=== PATIENT | male | born 1965 | race American Indian/Alaskan Native ===

== ENCOUNTER 2019-08-18 10:48 | Outpatient (CLI) | payer MEDICARE ==
--- NOTE | 2019-08-18 12:07 | Magnetic Resonance Report ---
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 COMPARISON: None available. FINDINGS: GENERAL OBSERVATIONS: Unenhanced MR images of the lumbar spine were obtained. Vertebral body alignment is unremarkable. [id number] ANALYSIS: L5-S1: Diffuse disc bulging is present, associated with broad-based shallow central disc protrusion. Degenerative-type bone marrow signal changes are associated with the anterior inferior aspect of the L5 vertebral body. L4-5: Minimal diffuse disc bulging associated with left-sided facet degenerative changes. L3-4: Disc profile is well preserved. L2-3: The disc profile is well preserved. L1-2: The disc profile is well preserved. BONE MARROW: As above. Otherwise unremarkable. SPINAL CORD/CAUDA EQUINA: Normal. PARASPINAL SOFT TISSUES: No significant abnormality. Multiple large left renal cysts are noted, only partially included on this spine protocol exam. IMPRESSION: Mild degenerative changes at L5-S1 and L4-5 as detailed above. Signer Name: Titus Moreno MD Signed: 08/18/2019 12:02 PM Workstation Name: [id number]
== END 2019-08-18 10:49 | disposition home or self-care (01) ==
LOC: MRI 10:48
PROVIDERS: ATTEND Physical Medicine & Rehabilitation Pain Medicine
DX: M47.816 Spondylosis without myelopathy or radiculopathy, lumbar region (principal); M47.28 Other spondylosis with radiculopathy, sacral and sacrococcygeal region; N28.1 Cyst of kidney, acquired
CPT/HCPCS: 72148